=== PATIENT | female | born 1990 | race Caucasian/White ===

== ENCOUNTER → 2016-08-25 | Outpatient (CLI) | payer MEDICAID, OTHER ==
--- NOTE | 2016-08-25 14:14 | MR ---
EXAMINATION TYPE: MR pelvis wo/w con DATE OF EXAM: 08/25/2016 2:03 PM COMPARISON: Ultrasound 03/01/2015 HISTORY: intra abd pelvic swelling, lump CONTRAST: Standard multiplanar, multisequence MRI departmental protocol utilizing 15 mL intravenous MultiHance gadolinium contrast. FINDINGS: A marker is placed over the area of palpable abnormality. There is a irregular mass measuring approxi mately 2 x 2 centimeters indenting the lower rectus muscle. There is some enhancement postcontrast ad ministration. Defibrillator granulation tissue or scar or low neoplasm not excluded. Surgical consult ation suggested. There appears be evidence of pelvic varices. Ovarian follicles are noted. And there is evidence of na bothian cysts. Sigmoid diverticulosis incidentally noted. No free fluid. Shotty adenopathy in the inguinal region. IMPRESSION: There is a irregular 2 x 2 x 3 cm enhancing mass just anterior to the lower right rectus muscle. This could be on the basis of granulation tissue or scar postoperatively. Neoplasm not excluded correlate with surgical consultation.
== END | disposition home or self-care (01) ==
LOC: RADMRIMAIN 12:53
PROVIDERS: ATTEND Family Medicine
DX: M62.89 Other specified disorders of muscle (principal)
CPT/HCPCS: 72197; A9577

== ENCOUNTER → 2016-09-21 | Outpatient (CLI) | payer MEDICAID, OTHER ==
--- NOTE | 2016-09-21 17:11 | US ---
EXAMINATION TYPE: US thyroid st tissue head/neck DATE OF EXAM: 09/21/2016 3:58 PM COMPARISON: In pacs thyroid ultrasound March 01, 2015 CLINICAL HISTORY: Thyroiditis E06.9. Enlarged thyroid, on thyroid meds GLAND SIZE: Right Lobe: 6.3 x 1.9 x 1.8 cm Overall Parenchyma: heterogenous Left Lobe: 5.3 x 1.7 x 1.7 cm Overall Parenchyma: heterogeneous Isthmus Thickness: 0.6 cm NODULES RIGHT: # of nodules measured on right: 0 LEFT: # of nodules measured on left: 0 ISTHMUS: # of nodules measured in the isthmus: 0 TECHNOLOGIST IMPRESSION: Enlarged heterogeneous thyroid without any definite lesions seen on today's exam, bilateral neck scanned, no abnormal lymphadenopathy noted. Thyroid gland remains heterogeneous in appearance and slightly enlarged in size without discrete tressa d or cystic nodules identified bilaterally. IMPRESSION: Heterogeneous enlarged thyroid gland redemonstrated. No worrisome focal nodules are noted. No signifi cant change from prior.
== END | disposition home or self-care (01) ==
LOC: RADUSWWP 15:35
PROVIDERS: ATTEND Family Medicine
DX: E06.9 Thyroiditis, unspecified (principal)
CPT/HCPCS: 76536

== ENCOUNTER 2016-10-16 08:51 | Day surgery (SDC) | payer MEDICAID, OTHER ==
[~2016-10-16 08:51] MED LIST: ALPRAZolam 0.5 MG TAB PO ONE; SODIUM BICARB 4% 5 ML VIAL (0.48 MEQ/ML) MISCELLANE PRN
[2016-10-16 09:11] VITALS: TEMP 98
--- NOTE | 2016-10-16 10:24 | US ---
EXAMINATION TYPE: US biopsy abd/retroperi mass DATE OF EXAM: 10/16/2016 10:11 AM COMPARISON: NONE HISTORY: Soft tissue mass subcutaneous tissues anterior abdominal wall The procedure is discussed with the patient, the risks, complications, benefits and alternatives, wer e discussed and any questions were answered. Informed consent was obtained. The patient is placed p estee on the CT table, prepped and draped in the usual sterile fashion. Utilizing a 18-gauge core biopsy needle access into the mass was achieved with 2 passes performed. P athology ending.. All elements of maximal barrier and sterile technique were utilized. The patient remained stable throughout the procedure with no immediate postprocedural complication. IMPRESSION: 1. Successful ultrasound guided core biopsy of a subcutaneous anterior abdominal wall mass
[2016-10-16 10:36] VITALS: BP 131/79; PULSE 88; RESP 18
== END 2016-10-16 10:25 | disposition home or self-care (01) ==
LOC: RADPROMAIN 08:51
PROVIDERS: ATTEND Surgery
DX: N80.8 Other endometriosis (principal); M79.89 Other specified soft tissue disorders
CPT/HCPCS: 49180; 88305; 88342

== ENCOUNTER → 2017-12-01 | Outpatient (CLI) | payer OTHER ==
--- NOTE | 2017-12-01 11:01 | US ---
EXAMINATION TYPE: US thyroid st tissue head/neck DATE OF EXAM: 12/01/2017 COMPARISON: US 09/21/2016 CLINICAL HISTORY: E07.9 DISORDER OF THYROID. F/U, pt recently started back on thyroid meds after stop ping x 2 years GLAND SIZE: Right Lobe: 6.5 x 2.3 x 3.2 cm Overall Parenchyma: heterogenous Left Lobe: 5.6 x 2.2 x 2.2 cm Overall Parenchyma: heterogeneous Isthmus Thickness: 0.8 cm Bilateral neck scanned, no evidence of lymphadenopathy. Bilateral enlarged, heterogeneous gland as se en on previous exams. IMPRESSION: Bilateral enlarged, heterogeneous gland as seen on previous exams.
== END | disposition home or self-care (01) ==
LOC: RADUSWWP 10:22
PROVIDERS: ATTEND Family Medicine
DX: E07.9 Disorder of thyroid, unspecified (principal)
CPT/HCPCS: 76536

== ENCOUNTER → 2020-05-23 | Outpatient (CLI) | payer OTHER ==
[2020-05-24 04:58] LABS: Toxoplasma Antibody (IgG) <3.0 IU/mL (<7.2); Toxoplasma Antibody (IgM) 9.1 AU/mL (<8.0)
== END | disposition home or self-care (01) ==
LOC: LABWHC1 10:32
PROVIDERS: ATTEND Obstetrics & Gynecology
DX: O26.892 Other specified pregnancy related conditions, second trimester (principal)
CPT/HCPCS: 36415; 86777; 86778

== ENCOUNTER 2020-05-25 14:40 | Observation (INO) | payer OTHER ==
[2020-05-25] MEDS: LACTATED RINGERS 1,000 ML IV SCH (15:15)
[2020-05-25 15:48] LABS: Basophils % (A) 0 %; Eosinophils # (A) 0.2 k/uL (0-0.7); Eosinophils % (A) 2 %; HCT 35.2 % (34.0-46.0); Lymphocytes # (A) 1.8 k/uL (1.0-4.8); Lymphocytes % (A) 16 %; MCH 32.4 pg (25.0-35.0); MCHC 34.1 g/dL (31.0-37.0); Mean Platelet Volume 7.7; Monocytes # (A) 0.5 k/uL (0-1.0); Monocytes % (A) 4 %; Neutrophils # (A) 8.4 k/uL (1.3-7.7); Neutrophils % (A) 76 %; Platelet Count 245 k/uL (150-450); RDW 13.1 % (11.5-15.5)
[2020-05-25 16:08] VITALS: RESP 16
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
[2020-05-25 21:04] LABS: Glucose,Whole Blood 123 mg/dL (75-99)
[2020-05-26] MEDS: LACTATED RINGERS 1,000 ML IV SCH (06:22)
[2020-05-26] MEDS ORDERED: LEVOTHYROXINE 100 MCG TAB PO SCH (06:30)
[2020-05-26 07:44] LABS: Glucose,Whole Blood 89 mg/dL (75-99)
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
[2020-05-26 09:59] LABS: Glucose,Whole Blood 120 mg/dL (75-99)
[2020-05-26 12:51] LABS: Glucose,Whole Blood 81 mg/dL (75-99)
[2020-05-26 14:20] VITALS: BP 118/62; PULSE 86; TEMP 98.1
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
== END 2020-05-26 14:20 | disposition home or self-care (01) ==
LOC: FBPOP 14:40 → 4FBP 16:39
PROVIDERS: ADMIT Obstetrics & Gynecology; ATTEND Obstetrics & Gynecology
DX: O71.89 Other specified obstetric trauma (principal); O60.03 Preterm labor without delivery, third trimester; V43.52XA Car driver injured in collision with other type car in traffic accident, initial encounter; V89.2XXA Person injured in unspecified motor-vehicle accident, traffic, initial encounter; Z3A.28 28 weeks gestation of pregnancy; O24.419 Gestational diabetes mellitus in pregnancy, unspecified control; O99.333 Smoking (tobacco) complicating pregnancy, third trimester; M54.9 Dorsalgia, unspecified; Z79.890 Hormone replacement therapy
CPT/HCPCS: 59025; 96365; 86900; 86901; 82731; 85025; 86850; 76815; G0463; G0378 ×2; 99213

== ENCOUNTER 2020-08-13 08:00 | Inpatient (IN) | payer OTHER ==
--- NOTE | 2020-08-12 07:25 | P.HPOB ---
History of Present Illness H&P Date: 08/12/20 Chief Complaint: Previous section desires repeat and tubal ligation This patient is a pleasant 30-year-old 4 para 3 female estimated date of confinement 08/17/2020 estimated gestational age 39-2/7 weeks who presents to labor and delivery for elective repeat section and also requesting permanent sterilization. Since care has been complicated by gestational diabetes which has been controlled by maternal medicine. Patient states that she has had good control. Patient has been monitored with nonstress testing and growth ultrasounds. Patient also had a positive toxoplasmosis IgM, however she was unable to complete evaluation of this per maternal- medicine due to transportation problems. Patient now presents for repeat section and also requesting tubal ligation at time of her surgery. Review of Systems Genitourinary: Reports Menstruation: Reports amenorrhea Past Medical History Past Medical History: Thyroid Disorder Additional Past Medical History / Comment(s): Pt states she has a "lump" on her previous C/S scar History of Any Multi-Drug Resistant Organisms: None Reported Past Surgical History: Section Past Anesthesia/Blood Transfusion Reactions: No Reported Reaction Past Psychological History: No Psychological Hx Reported Smoking Status: Current every day smoker Past Alcohol Use History: None Reported Past Drug Use History: None Reported - Past Family History Father Family Medical History: No Reported History Mother History Unknown: Yes Medications and Allergies Home Medications Medication Instructions Recorded Confirmed Type Levothyroxine Sodium [Synthroid] 100 mcg PO DAILY 11/30/13 05/25/20 History Multivitamin [Multivitamins Adult 1 tab PO DAILY 05/25/20 05/25/20 History Gummies] Allergies Allergy/AdvReac Type Severity Reaction Status Date / Time No Known Allergies Allergy Verified 05/25/20 14:49 Exam - OBG Physical Exam Abdomen: bowel sounds normal, no diffuse tenderness, no bruit present, no guarding noted, no hepatomegaly, no splenomegaly, no mass Vulva: both: normal Vagina: normal moisture, no discharge Cervix: no lesion, no discharge Uterus: enlarged (Fundal height is 41 cm.) Results blood work shows she is O positive, rubella immune, RPR nonreactive, hepatitis B negative, HIV is negative, toxoplasmosis showed a weakly positive IgM 2, Glucola was 162 with an abnormal 3 hour gtt. Ultrasounds have shown normal growth and anatomy. Assessment and Plan Assessment: This is a pleasant 30-year-old 4 para 3 female 39-2/7 weeks gestation who is admitted to labor and delivery for elective repeat section and also requesting permanent sterilization by tubal ligation. Patient also has a history of a incisional endometrioma. Plan today is repeat low transverse section and bilateral partial salpingectomy. Also plan on removing the endometrioma if it's visible at the time of her . Patient does understand a tubal ligation is considered permanent and that there is however a failure rate of approximately less than 5 per thousand procedures done. She understands if she does become she is a 50% chance of a tubal or an ectopic . Patient also understands that this is an elective procedure and alternatives to a tubal ligation do exist. Patient I discussed the surgery and risks including risks of infection, bleeding, possible injury to bowel, bladder, vessels, and/or other organs. All the patient's questions are answered and a written consent is obtained. (1) 39 weeks gestation of Status: Acute Code(s): Z3A.39 - 39 WEEKS GESTATION OF SNOMED Code(s): 96353477 (2) Gestational diabetes Status: Acute Code(s): O24.419 - GESTATIONAL DIABETES MELLITUS IN , UNSP CONTROL SNOMED Code(s): 93578396 (3) Previous delivery affecting Status: Acute Code(s): O34.219 - MATERNAL CARE FOR UNSP TYPE SCAR FROM PREVIOUS DEL SNOMED Code(s): 280814150 (4) Family planning Status: Acute Code(s): Z30.09 - ENCOUNTER FOR OT GENERAL CNSL AND ADVICE ON CONTRACEPTION SNOMED Code(s): 515989704
[2020-08-12 11:44] VITALS: BMI 35.0
[2020-08-13] MEDS ORDERED: LACTATED RINGERS 1,000 ML IV ONE (09:50)
[2020-08-13] MEDS ORDERED: CITRIC ACID-SODIUM CITRATE 15 ML CUP PO ONE (09:50)
[2020-08-13 10:05] LABS: Basophils # (A) 0.1 k/uL (0-0.2); Basophils % (A) 1 %; Eosinophils # (A) 0.2 k/uL (0-0.7); Eosinophils % (A) 2 %; HCT 39.9 % (34.0-46.0); HGB 13.4 gm/dL (11.4-16.0); Lymphocytes # (A) 1.6 k/uL (1.0-4.8); Lymphocytes % (A) 14 %; MCH 31.3 pg (25.0-35.0); MCHC 33.6 g/dL (31.0-37.0); Mean Platelet Volume 8.8; Monocytes # (A) 0.5 k/uL (0-1.0); Monocytes % (A) 4 %; Neutrophils # (A) 8.3 k/uL (1.3-7.7); Neutrophils % (A) 78 %; Platelet Count 202 k/uL (150-450); RBC 4.29 m/uL (3.80-5.40); RDW 13.9 % (11.5-15.5); WBC 10.7 k/uL (3.8-10.6)
[2020-08-13 10:13] LABS: Glucose,Whole Blood 89 mg/dL (75-99)
[2020-08-13] MEDS: LACTATED RINGERS 1,000 ML IV SCH ×2 (11:50→12:30)
[2020-08-13] MEDS ORDERED: ONDANSETRON 4 MG/2 ML VIAL ONE (12:35)
[2020-08-13] MEDS ORDERED: KETOROLAC 15 MG/ML 1 ML VIAL ONE (12:35)
[2020-08-13] MEDS ORDERED: OXYTOCIN 10 UNIT/ML 1 ML VIAL ONE (12:35)
[2020-08-13] MEDS ORDERED: MORPHINE SULFATE (PF) 0.3 MG/0.3 ML SYR ONE (12:35)
[2020-08-13] MEDS ORDERED: DEXAMETHASONE SOD PHOSPHATE 10 MG/ML 1 ML VIAL ONE (12:35)
[2020-08-13] MEDS ORDERED: diphenhydrAMINE 25 MG CAP PO PRN (13:36)
[2020-08-13] MEDS ORDERED: SIMETHICONE 80 MG CHEWABLE PO PRN (13:36)
[2020-08-13] MEDS ORDERED: ONDANSETRON 4 MG/2 ML VIAL IVP PRN (13:36)
[2020-08-13] MEDS ORDERED: KETOROLAC 15 MG/ML 1 ML VIAL IVP PRN (13:36)
[2020-08-13] MEDS ORDERED: OXYTOCIN 30 UNITS/500 ML NS 30 UNIT in SALINE 1 500ML.BAG IV SCH (13:36)
[2020-08-13] MEDS ORDERED: ACETAMINOPHEN TAB 325 MG TAB PO PRN (13:36)
[2020-08-13] MEDS ORDERED: NALOXONE 0.4 MG/ML 1 ML VIAL IV PRN (13:36)
[2020-08-13] MEDS ORDERED: ZOLPIDEM 5 MG TAB PO PRN (13:36)
[2020-08-13] MEDS ORDERED: diphenhydrAMINE 50 MG/ML 1 ML VIAL IVP PRN (13:36)
[2020-08-13] MEDS ORDERED: METOCLOPRAMIDE 5 MG/ML 2 ML VIAL IVP PRN (13:36)
[2020-08-13] MEDS ORDERED: HYDROcodone/APAP 5-325MG 1 EACH TAB PO PRN (13:36)
[2020-08-13] MEDS ORDERED: LANOLIN CREAM 5 GM TUBE TOPICAL PRN (13:36)
[2020-08-13 17:21] LABS: Hemoglobin A1C 5.7 % (4.0-6.0)
--- NOTE | 2020-08-13 18:17 | P.OP ---
Date of Procedure: 08/13/20 Preoperative Diagnosis: #1: 39-2/7 week intrauterine . #2: Previous section desires repeat. #3: Multi parity desires permanent sterilization. #4: Gestational diabetes. #5: Incisional endometrioma Postoperative Diagnosis: Same Procedure(s) Performed: #1: Repeat low transverse section. #2: Bilateral partial salpingectomy. #3: Excision of incisional endometrioma Anesthesia: spinal Surgeon: Nadeem Odom Director Of Women'S Services #1: Rasheeda Rodriguez Estimated Blood Loss (ml): 800 Pathology: other (Placenta, bilateral fallopian tube segments, incisional endometrioma) Condition: stable Disposition: floor Indications for Procedure: Please see dictated H&P for intimate details of this patient's admission. Brief summary is a pleasant 30-year-old female 39-2/7 weeks gestation who is admitted to labor and delivery for elective repeat section also requesting permanent sterilization. Patient also has a known right-sided incisional endometrioma from previous section and she is requested attempted removal. Patient understands that a tubal ligation is considered permanent, however there is a failure rate of approximately less than 5 per thousand procedures done. She understands if she does become she is a 50% chance of a tubal or ectopic . Patient also understands risk of surgery including risks of infection, bleeding, possible injury to bowel, bladder, vessels, and/or other organs. All the patient's questions are answered and written consent is obtained. Operative Findings: This patient had a vigorous viable female who grossly appeared normal. Patient had a approximately 2 cm x 1 cm right sided endometrioma of the right fascial layer. Uterus tubes and ovaries appear normal. Description of Procedure: This patient has a Soriano catheter placed to straight drain. She is subsequently taken to the operating room where she sat up and spinal anesthetic is administered without incident. With an adequate level of anesthesia she has an abdominal prep and drape. Scalpels and taken in the previous Pfannenstiel incision is incised. A second scalpel is taken down to the fascia. There is thickening over on the right side of the fascial incision consistent with this endometrioma. The fascial incision extended bilaterally using the Palma scissors. The rectus muscles were then and the peritoneum identified and entered sharply. Peritoneal incision extended superior and inferior without difficulty. Bladder blade is then placed. Bladder peritoneum was taken off the lower uterine segment. Scalpels and taken a low transverse uterine incision is then made. Using a hemostat I enter the uterine cavity bluntly and there is loss of clear fluid. This incision is extended bluntly. Infant's head is then guided through the incision with fundal pressure. Mouth and nares are bulb suctioned. With additional fundal pressure with delivery the rest of this 's body. This is a vigorous viable female infant. After delivery of the the umbilical cord is doubly clamped and cut appears to be trivascular. The is then handed off to the nurses in attendance. The placenta is then manually extracted intact. Uterus is then externalized and uterine incision demarcated with Morales clamps. Uterine incision then closed using 0 Vicryl in 2 layers. Excellent hemostasis is noted. Excess fluid is removed from the abdomen and pelvis. Then turned my attention of the left fallopian tube. Approximately 4 cm from the cornual insertion a small window is made to the mesial salpinx. Using a 2-0 silk I doubly ligate a 2 cm segment of the tube. This is then excised with Metzenbaum scissors and handed off to pathology. Cauterization is done of the tubal ends. Excellent hemostasis is noted using a similar technique on the right side is similar results. With both fallopian tubes ligated and excised. The uterus is placed back into the abdomen. Again inspection shows excellent hemostasis of the tubal ends and of the uterine incision. The parietal peritoneum was then closed using 0 Vicryl running fashion. The rectus muscles are then closed using 0 Vicryl interrupted fashion. At this time inspect the fascial incision this area on the right side where the endometriomas using Bovie cautery I are fully dissect out all of the endometrioma that is possible. I had to be quite cautious because it does involve the fascial and did not want a fascial defect. Unfortunately this would require leaving some of the endometrioma I believe. With the endometrioma debulked as much as possible, the fascia is then closed using 0 PDS. Fascial incision is then intact and hemostatic. The cutaneous tissues and closed using a 3-0 Vicryl. Skin is and closed using isma. All counts are correct 3. There are no complications. Infant and mother are taken to the birthing suite in satisfactory condition.
[2020-08-13] MEDS: SENNOSIDES-DOCUSATE SODIUM 1 EACH TAB PO SCH (20:12)
[2020-08-14 06:00] LABS: Basophils # (A) 0.1 k/uL (0-0.2); Basophils % (A) 1 %; Eosinophils # (A) 0.2 k/uL (0-0.7); Eosinophils % (A) 2 %; HCT 35.3 % (34.0-46.0); HGB 11.8 gm/dL (11.4-16.0); Hypochromasia Slight; Lymphocytes # (A) 1.5 k/uL (1.0-4.8); Lymphocytes % (A) 15 %; MCH 31.9 pg (25.0-35.0); MCHC 33.3 g/dL (31.0-37.0); MCV 95.7 fL (80.0-100.0); Mean Platelet Volume 9.2; Monocytes # (A) 0.6 k/uL (0-1.0); Monocytes % (A) 6 %; Neutrophils # (A) 7.6 k/uL (1.3-7.7); Neutrophils % (A) 76 %; Platelet Count 171 k/uL (150-450); RBC 3.69 m/uL (3.80-5.40); RDW 14.6 % (11.5-15.5)
--- NOTE | 2020-08-14 06:29 | P.PNOBGPC ---
Subjective - Subjective Patient reports: Reports appetite normal, Reports voiding normally, Reports pain well controlled, Reports ambulating normally : doing well Objective - Vital Signs Latest vital signs: Vital Signs Temp Pulse Resp BP Pulse Ox 08/14/20 04:00 78 16 104/72 98 08/13/20 23:48 98.1 F 88 16 101/67 97 08/13/20 20:00 98.1 F 83 16 119/66 97 08/13/20 15:30 98.5 F 83 16 123/69 96 08/13/20 15:00 96.8 F L 89 16 126/74 96 08/13/20 14:30 98.3 F 75 16 127/67 97 08/13/20 14:15 80 16 117/59 99 08/13/20 14:00 70 16 125/63 95 08/13/20 13:45 87 16 133/89 99 08/13/20 13:30 96.7 F L 98 16 132/80 97 08/13/20 09:50 96.7 F L 108 H 16 115/72 96 Intake and Output 08/13/20 08/13/20 08/14/20 14:59 22:59 06:59 Intake Total 1000 Output Total 1200 1308 400 Balance -1200 -308 -400 Intake: IV 1000 Output: Urine 1200 1000 400 Uretheral (Soriano) 600 Estimated Blood Loss 308 Other: Voiding Method Indwelling Catheter Indwelling Catheter # Voids 1 Weight 89.811 kg - Exam Lungs: bilateral: normal Chest: Normal S1, Normal S2 Extremities: Present: normal Abdomen: Present: normal appearance, soft. Absent: distention, tenderness Incision: Present: normal, dry, intact Uterus: Present: normal, firm - Labs Labs: Abnormal Lab Results - Last 24 Hours (Table) 08/13/20 08/14/20 Range/Units 09:47 05:09 WBC 10.7 H (3.8-10.6) k/uL RBC 3.69 L (3.80-5.40) m/uL Neutrophils # 8.3 H (1.3-7.7) k/uL Assessment and Plan Assessment: Postoperative day #1. Patient is resting without complaints. Vital signs are stable she is afebrile. Uterus is firm nontender and she is having normal lochia. Patient's been able to urinate without difficulty. Incision is intact and dry. CBC today was normal. Plan is to advance to regular diet, encourage ambulation, allow the patient to shower. Continue routine postoperative care (1) 39 weeks gestation of Current Visit: No Status: Acute Code(s): Z3A.39 - 39 WEEKS GESTATION OF SNOMED Code(s): 46544132 (2) Gestational diabetes Current Visit: No Status: Acute Code(s): O24.419 - GESTATIONAL DIABETES MELLITUS IN , UNSP CONTROL SNOMED Code(s): 64502251 (3) Previous delivery affecting Current Visit: No Status: Acute Code(s): O34.219 - MATERNAL CARE FOR UNSP TYPE SCAR FROM PREVIOUS DEL SNOMED Code(s): 742777128 (4) Family planning Current Visit: No Status: Acute Code(s): Z30.09 - ENCOUNTER FOR OTH GENERAL CNSL AND ADVICE ON CONTRACEPTION SNOMED Code(s): 310511149
--- NOTE | 2020-08-14 06:38 | P.PN ---
Progress Note - Text Progress Note Date: 08/14/20 Postoperative day 1 status post section under spinal anesthesia, and intrathecal morphine given for postoperative analgesia, patient doing well, there is no anesthesia related complications Patient had no headache, vital signs stable Assessment and plan = postop day 1 status post , doing well there is no anesthesia related complication
[2020-08-14] MEDS: IBUPROFEN 600 MG TAB PO PRN ×2 (12:35→19:55)
[2020-08-14] MEDS: SENNOSIDES-DOCUSATE SODIUM 1 EACH TAB PO SCH ×2 (12:44→19:55)
[2020-08-15] MEDS: IBUPROFEN 600 MG TAB PO PRN ×2 (04:28→12:50)
--- NOTE | 2020-08-15 06:35 | P.PNOBGPC ---
Subjective - Subjective Patient reports: Reports appetite normal, Reports voiding normally, Reports pain well controlled, Reports ambulating normally : doing well Objective - Vital Signs Latest vital signs: Vital Signs Temp Pulse Resp BP Pulse Ox 08/15/20 00:00 98.6 F 84 16 114/70 08/14/20 20:00 98.0 F 84 16 114/70 98 08/14/20 15:04 98.1 F 104 H 16 115/71 08/14/20 12:00 98.3 F 100 16 112/67 08/14/20 08:00 98 F 17 102/65 95 Intake and Output 08/14/20 08/14/20 08/15/20 14:59 22:59 06:59 Output Total 900 Balance -900 Output: Urine 900 - Exam Lungs: bilateral: normal Chest: Normal S1, Normal S2 Extremities: Present: normal Abdomen: Present: normal appearance, soft. Absent: distention, tenderness Incision: Present: normal, dry, intact Uterus: Present: normal, firm Assessment and Plan Assessment: Post operative day #2. Patient is resting without new complaints and wishes to go home. Vital signs are stable and she is afebrile. Uterus is firm nontender she's having normal lochia. Incision is intact and dry. CBC yesterday was normal. Patient is tolerating regular diet, and ambulating, urinating without difficulty. Plan today is to continue routine care discharge home later today (1) 39 weeks gestation of Current Visit: No Status: Acute Code(s): Z3A.39 - 39 WEEKS GESTATION OF SNOMED Code(s): 77421300 (2) Gestational diabetes Current Visit: No Status: Acute Code(s): O24.419 - GESTATIONAL DIABETES MELLITUS IN , UNSP CONTROL SNOMED Code(s): 31950031 (3) Previous delivery affecting Current Visit: No Status: Acute Code(s): O34.219 - MATERNAL CARE FOR UNSP TYPE SCAR FROM PREVIOUS DEL SNOMED Code(s): 607570298 (4) Family planning Current Visit: No Status: Acute Code(s): Z30.09 - ENCOUNTER FOR OTH GENERAL CNSL AND ADVICE ON CONTRACEPTION SNOMED Code(s): 367419690
--- NOTE | 2020-08-15 06:44 | P.DS ---
Providers Date of admission: 08/13/20 09:25 Expected date of discharge: 08/15/20 Attending physician: Nadeem Odom Primary care physician: Stated None - Discharge Diagnosis(es) (1) 39 weeks gestation of Current Visit: No Status: Acute (2) Gestational diabetes Current Visit: No Status: Acute (3) Previous delivery affecting Current Visit: No Status: Acute (4) Family planning Current Visit: No Status: Acute Hospital Course: Please see dictated H&P for intimate details of this patient's admission. Brief summary this is a pleasant 30-year-old 4 para 3 female 39-2/7 weeks gestation admitted to labor and delivery for elective repeat section and tubal sterilization. Patient is admitted she undergoes above-named surgeries. 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 Postoperatively the patient did well and on postoperative and 2 spell to be stable to go home. Patient's follow-up with me in 1 week. Procedures: Repeat low transverse section, bilateral partial salpingectomy, ex cision of incisional endometrioma Patient Condition at Discharge: Good Plan - Discharge Summary Discharge Rx Participant: No New Discharge Prescriptions: New Ibuprofen [Motrin] 600 mg PO Q6HR PRN #30 tab PRN Reason: Mild Pain Or Fever >= 100.5 HYDROcodone/APAP 5-325MG [[place] 5-325] 1 each PO Q4HR PRN #18 tab PRN Reason: Moderate Pain No Action Levothyroxine Sodium [Synthroid] 100 mcg PO DAILY Pedi Multivit No.25/Folic Acid [[place]stones Multivit Chew Tab] 2 tab PO DAILY Discharge Medication List Levothyroxine Sodium [Synthroid] 100 mcg PO DAILY 11/30/13 [History] Pedi Multivit No.25/Folic Acid [[place]stones Multivit Chew Tab] 2 tab PO DAILY 08/12/20 [History] HYDROcodone/APAP 5-325MG [[place] 5-325] 1 each PO Q4HR PRN #18 tab 08/15/20 [Rx] Ibuprofen [Motrin] 600 mg PO Q6HR PRN #30 tab 08/15/20 [Rx] Follow up Appointment(s)/Referral(s): Nadeem Odom MD [STAFF PHYSICIAN] - 08/22/20 8:30 am (Please see me for a visit on September 23 at 10 AM) Patient Instructions/Handouts: (DC) Activity/Diet/Wound Care/Special Instructions: No strenuous lifting or heavy lifting for 6 weeks. Please call if any fever, chills, excessive vaginal bleeding, and/or abdominal pain. Discharge Disposition: HOME SELF-CARE
[2020-08-15] MEDS: LACTATED RINGERS 1,000 ML IV SCH ×2 (07:22→14:50)
[2020-08-15 08:07] VITALS: BP 98/65; PULSE 101; RESP 15; TEMP 98
[2020-08-15] MEDS: SENNOSIDES-DOCUSATE SODIUM 1 EACH TAB PO SCH (09:46)
== END 2020-08-15 16:15 | disposition home or self-care (01) | DRG 785 ==
LOC: 4FBP 09:25
PROVIDERS: ADMIT Obstetrics & Gynecology; ATTEND Obstetrics & Gynecology
PROC: 0UB70ZZ Excision of Bilateral Fallopian Tubes, Open Approach (ICD-10-PCS; principal; 2020-08-13 12:00)
PROC: 10D00Z1 Extraction of Products of Conception, Low, Open Approach (ICD-10-PCS; principal; 2020-08-13 12:00)
DX: O34.211 Maternal care for low transverse scar from previous cesarean delivery (principal); N80.8 Other endometriosis; F17.210 Nicotine dependence, cigarettes, uncomplicated; O24.429 Gestational diabetes mellitus in childbirth, unspecified control; Z30.2 Encounter for sterilization; Z37.0 Single live birth; Z3A.39 39 weeks gestation of pregnancy; Z79.890 Hormone replacement therapy
CPT/HCPCS: 83036; 85025; 86850; 86900; 86901; 88302; 88305; 88307